=== PATIENT | female | born 1995 | race Caucasian/White ===

== ENCOUNTER 2018-03-10 10:42 | Emergency (ER) | payer OTHER ==
[~2018-03-10] VITALS: Ht 162.6 cm; Wt 54.0 kg
[~2018-03-10 10:42] MED LIST: NO HOME MEDS
[2018-03-10 10:48] VITALS: BP 113/61
== END 2018-03-10 11:07 | disposition home or self-care (01) ==
LOC: ER 10:43
DX: S93.401A Sprain of unspecified ligament of right ankle, initial encounter (principal); S39.012A Strain of muscle, fascia and tendon of lower back, initial encounter; V43.52XA Car driver injured in collision with other type car in traffic accident, initial encounter; Y93.89 Activity, other specified; Y92.410 Unspecified street and highway as the place of occurrence of the external cause; Y99.9 Unspecified external cause status
CPT/HCPCS: 99281

== ENCOUNTER 2019-02-09 09:41 | Emergency (ER) | payer OTHER ==
[~2019-02-09] VITALS: Ht 162.6 cm; Wt 59.1 kg
[2019-02-09 10:44] LABS: URINE HCG NEGATIVE (NEG)
[2019-02-09 10:53] LABS: CLARITY,URINE SLIGHTLY CLOUDY (Clear); COLOR,URINE YELLOW (Yellow); GLUCOSE, URINE NEGATIVE (Neg); KETONES,URINE NEGATIVE (Neg); LEUKOCYTE ESTERASE ,URINE NEGATIVE (Neg); NITRITES, URINE NEGATIVE (Neg); OCCULT BLOOD,URINE NEGATIVE (Neg); PROTEIN,URINE NEGATIVE (Neg); UROBILINOGEN,URINE 0.2 E.U/dL (0.2-1.0)
[2019-02-09 10:57] LABS: UA COLLECTION TYPE CLN CATCH MIDSTREAM
[2019-02-09 10:59] LABS: AMORPHOUS PHOSPHATES 1+; BACTERIA,URINE FEW /HPF (Neg); RBC,URINE NONE SEEN /HPF (0-2); SQUAMOUS EPITHELIAL CELL,UR FEW /LPF (FEW); WBC,URINE 0-4 /HPF (0-4)
[2019-02-09] MEDS ORDERED: dexamethasone sod phosphate 10mg/ml inj IV STA (13:56)
[2019-02-09] MEDS ORDERED: normal saline 1000ML IV soln IVB ONE (14:00)
[2019-02-09] MEDS ORDERED: ketorolac trometh. 30mg/ml inj. IV ONE (14:00)
[2019-02-09] MEDS ORDERED: KETO10TA2 PO (14:55)
[2019-02-09] MEDS ORDERED: CYCL-1 PO (14:55)
[2019-02-09] MEDS ORDERED: HYDR-4383 PO (14:55)
[2019-02-09] MEDS ORDERED: dexamethasone sod phosphate 10mg/ml inj PO STA (15:37)
[2019-02-09] MEDS ORDERED: ketorolac trometh. 30mg/ml inj. IM ONE (15:40)
[2019-02-09 16:14] VITALS: BP 111/62
--- NOTE | 2019-02-09 16:23 | NUR ---
PATIENT PROVIDED MRI DISK OF LUMBAR SPINE
== END 2019-02-09 16:22 | disposition home or self-care (01) ==
LOC: ER 09:42
DX: M51.26 Other intervertebral disc displacement, lumbar region (principal); M53.3 Sacrococcygeal disorders, not elsewhere classified; Z79.899 Other long term (current) drug therapy
CPT/HCPCS: 72100; 72148; 81001; 81025; 96372; 99284; J1100; J1885